=== PATIENT | male | born 1965 | race Caucasian/White ===

== ENCOUNTER 2020-11-19 16:51 | Emergency (ER) | payer OTHER ==
--- NOTE | 2020-11-19 17:34 | NUR ---
CALLED FOR PT. PT NOT IN LOBBY
--- NOTE | 2020-11-19 19:00 | NUR ---
NIL X 2
--- NOTE | 2020-11-19 19:59 | NUR ---
NIL X 3
== END 2020-11-19 20:02 | disposition home or self-care (01) ==
LOC: ED 19:56
DX: M79.643 Pain in unspecified hand (principal); Z53.21 Procedure and treatment not carried out due to patient leaving prior to being seen by health care provider